=== PATIENT | female | born 1945 | race Caucasian/White ===

== ENCOUNTER → 2017-03-23 15:00 | Outpatient (CLI) | payer MEDICARE, OTHER ==
[2010-02-22 16:49] VITALS: BMI 26.5
== END | disposition home or self-care (01) ==
LOC: D.MAMMO 11:30
DX: Z12.31 Encounter for screening mammogram for malignant neoplasm of breast (principal)

== ENCOUNTER → 2017-12-12 10:20 | Outpatient (CLI) | payer MEDICARE, OTHER ==
[2010-02-22 16:49] VITALS: BMI 26.5
== END | disposition home or self-care (01) ==
LOC: D.CT 10:20
DX: R22.1 Localized swelling, mass and lump, neck (principal)

== ENCOUNTER → 2018-03-27 16:02 | Outpatient (CLI) | payer MEDICARE, OTHER ==
[2010-02-22 16:49] VITALS: BMI 26.5
== END | disposition home or self-care (01) ==
LOC: D.MAMMO 10:30
DX: Z12.31 Encounter for screening mammogram for malignant neoplasm of breast (principal)